=== PATIENT | male | born 1950 | race Caucasian/White ===

== ENCOUNTER 2021-05-22 18:21 | Emergency (ER) | payer BC, OTHER ==
[~2021-05-22] VITALS: Ht 172.7 cm; Wt 81.6 kg
--- NOTE | 2021-05-22 18:21 | NUR ---
BIBA TO BED 3
[2021-05-22 18:26] VITALS: BP 165/89
--- NOTE | 2021-05-22 18:43 | NUR ---
71 YO MALE BIBA FROM [facility] C/O R FLANK PAIN X 1 WEEK. 10 SHARP, NON RADIATING. +HEMATURIA, +DYSURIA, PER MEDIC PT FELL X2 LANDED ON RIGHT SIDE. PT HAS LEFT LOWER ANKLE/FOOT EDEMA +1 PITTING. 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 PT STATES HE AMBULATES WITH CANE. DENIES N/V/D. A&OX4, RR EVEN AND UNLABORED. PT PLACED ON MONITOR. SIDE RAILS UP, BED IN LOWEST POSITION FOR SAFETY. PMH: CVA 2014, LEFT SIDED DEFICIT NKDA
--- NOTE | 2021-05-22 19:17 | NUR ---
REPORT GIVEN TO LEEANNE ERNANDEZ, TRANSFER OF CARE AT THIS TIME
--- NOTE | 2021-05-22 20:12 | NUR ---
PATIENT ASSISTED TO RESTROOM VIA W/C ASSIST.
[2021-05-22 20:15] LABS: APPEARANCE,URINE CLOUDY (CLEAR); BILIRUBIN,URINE NEGATIVE (NEGATIVE); BLOOD, URINE 3+ (NEGATIVE); COLOR,URINE AMBER (YELLOW); LEUKOCYTE ESTERASE ,URINE TRACE (NEGATIVE); NITRITE, URINE POSITIVE (NEGATIVE); UGLUCOSE NEGATIVE (NEGATIVE)
[2021-05-22 20:15] LABS: BASOPHILS # (AUTO) 0.1 K/uL (0.00-0.22); BASOPHILS % (AUTO) 0.5 % (0.0-2.0); EOSINOPHILS # (AUTO) 0.1 K/uL (0-0.4); EOSINOPHILS % (AUTO) 0.9 % (0.0-4.0); HEMATOCRIT 30.5 % (36-52); HEMOGLOBIN 9.6 g/dL (12.0-18.0); LYMPHOCYTES # (AUTO) 0.9 K/uL (2.0-11.5); LYMPHOCYTES % (AUTO) 7.7 % (20.5-51.1); MEAN CORPUSCULAR HEMOGLOBIN 26 pg (27-31); MEAN CORPUSCULAR HGB CONC 32 g/dL (33-37); MEAN CORPUSCULAR VOLUME 81.2 fL (80-94); MONOCYTES # (AUTO) 1.1 K/uL (0.8-1.0); MONOCYTES % (AUTO) 8.7 % (1.7-9.3); NEUTROPHILS # (AUTO) 10.1 K/uL (1.8-7.7); PLATELET COUNT (AUTO) 403 K/uL (140-450); RED BLOOD CELL COUNT(AUTO) 3.76 MIL/uL (4.20-6.10); RED CELL DISTRIBUTION WIDTH 16.2 % (11.6-13.7); WHITE BLOOD COUNT (AUTO) 12.2 K/uL (4.8-10.8)
[2021-05-22 20:27] LABS: RBC,URINE TOO NUMEROUS TO COUN /HPF (0-5)
[2021-05-22 20:34] LABS: ALBUMIN 3.4 g/dL (3.4-5.0); ANION GAP 11.4 (8-16); CARBON DIOXIDE 27.5 mmol/L (21-32); CREATININE 1.4 mg/dL (0.6-1.3); POTASSIUM 3.9 mmol/L (3.5-5.1); TOTAL BILIRUBIN 0.4 mg/dL (0.0-1.0)
[2021-05-22 20:38] LABS: NEUTROPHILS % (AUTO) 82.2 % (42.2-75.2)
[2021-05-22 20:40] LABS: PROTHROMBIN TIME 9.9 secs (10.8-13.4)
--- NOTE | 2021-05-22 23:28 | NUR ---
NAD at this time. changed pt diapers and placed new gown on pt. on CM
--- NOTE | 2021-05-23 00:28 | NUR ---
NAD. pt remains awake. denies any needs at this time. VSS
--- NOTE | 2021-05-23 09:56 | NUR ---
CALLED [facility] SPOKE WITH LEELAENEDINA [phone] WHO STATED PATIENT IS IN LIA ON THEIR SYSTEM, TOLD HER THAT PATIENT IS STILL HERE, AND SHE STATED SHE WILL CALL US BACK.
--- NOTE | 2021-05-23 10:00 | NUR ---
Pt resting in bed with eyes closed
--- NOTE | 2021-05-23 12:00 | NUR ---
Pt resting in bed. No concerns at this time.
[2021-05-23] MEDS ORDERED: cefTRIAXone 1,000 MG in LIDOCAINE MPF 1% 2.1 ML IM ONE (12:20)
[2021-05-23] MEDS ORDERED: cefTRIAXone 1,000 MG VIAL ONE (12:33)
[2021-05-23] MEDS ORDERED: LIDOCAINE MPF 1% 5 ML ONE (12:33)
--- NOTE | 2021-05-23 13:18 | NUR ---
Freda care provided. Pt cleansed and diapered. No redness noted to area.
[2021-05-23 13:36] LABS: HEMATOCRIT 29.8 % (36-52); HEMOGLOBIN 9.6 g/dL (12.0-18.0)
[2021-05-23] MEDS ORDERED: HYDR-5080 PO (14:00)
--- NOTE | 2021-05-23 16:00 | NUR ---
Pt updated on plan of care
--- NOTE | 2021-05-23 16:45 | NUR ---
IV removed, catheter intact
--- NOTE | 2021-05-23 16:51 | NUR ---
Patient discharged with v/s stable. Written and verbal after care instructions given and explained. Follow-up care reviewed. Patient alert, oriented and verbalized understanding of instructions. Ambulatory with steady gait. All questions addressed prior to discharge. ID band removed. Patient advised to follow up with PMD. Rx of Gallant was given. Patient educated on indication of medication including possible reaction and side effects. Opportunity to ask questions provided and answered.
[2021-05-23 16:52] VITALS: BP 161/86
== END 2021-05-23 16:53 | disposition home or self-care (01) ==
LOC: MED 18:21
DX: N28.9 Disorder of kidney and ureter, unspecified (principal); Z20.822 Contact with and (suspected) exposure to COVID-19; R31.9 Hematuria, unspecified; Z86.73 Personal history of transient ischemic attack (TIA), and cerebral infarction without residual deficits
CPT/HCPCS: 36415; 71250; 74176; 80053; 81001; 85018; 85025; 85610; 85730; 87086; 87426; 96372; 99285; J0696; J2001

== ENCOUNTER 2021-06-15 18:12 | Emergency (ER) | payer BC, OTHER ==
[~2021-06-15] VITALS: Ht 172.7 cm; Wt 77.1 kg
[~2021-06-15 18:12] MED LIST: HYDR-5080 PO
[2021-06-15 18:16] VITALS: BP 146/88
--- NOTE | 2021-06-15 18:16 | NUR ---
PT BROUGHT TO BED 5 VIA BRITTANI JOSEPH
--- NOTE | 2021-06-15 18:35 | NUR ---
71 YO MALE BIBA FROM [facility] C/O DYSURIA, HEMATURIA FOR THE PAST COUPLE OF MONTHS WORSENING TODAY. PT BEING SEEN BY UROLOGY DR. OSBORN URINE SAMPLE COLLECTED. HX "PROSTATE ISSUES", CVA 7 YEARS AGO
[2021-06-15] MEDS ORDERED: TAMS0.4C96 PO (19:18)
[2021-06-15] MEDS ORDERED: PYR100 PO (19:18)
[2021-06-15 19:25] LABS: APPEARANCE,URINE CLEAR (CLEAR); BILIRUBIN,URINE 1+ (NEGATIVE); BLOOD, URINE 3+ (NEGATIVE); COLOR,URINE YELLOW (YELLOW); LEUKOCYTE ESTERASE ,URINE NEGATIVE (NEGATIVE); NITRITE, URINE NEGATIVE (NEGATIVE); PH,URINE 5.5 (5.0-9.0); UGLUCOSE NEGATIVE (NEGATIVE)
--- NOTE | 2021-06-15 19:25 | NUR ---
received report from Ruthie ERNANDEZ for continuity of care
--- NOTE | 2021-06-15 19:25 | NUR ---
REPORT AND TRANSFER OF CARE GIVEN TO AWAIS WISE.
[2021-06-15 19:41] LABS: RBC,URINE TOO NUMEROUS TO COUN /HPF (0-5); WBC,URINE 0-5 /HPF (0-5)
[2021-06-15 19:46] VITALS: BP 146/88
--- NOTE | 2021-06-15 19:46 | NUR ---
Patient discharged with v/s stable. Written and verbal after care instructions given and explained. Patient alert, oriented and verbalized understanding of instructions. Wheel Chair Assisted with to car. All questions addressed prior to discharge. ID band removed. Patient advised to follow up with PMD. Rx of pyridium and flomax given. Patient educated on indication of medication including possible reaction and side effects. Opportunity to ask questions provided and answered.
== END 2021-06-15 19:46 | disposition home or self-care (01) ==
LOC: MED 18:12
DX: R30.0 Dysuria (principal); N40.0 Benign prostatic hyperplasia without lower urinary tract symptoms; Z79.899 Other long term (current) drug therapy; Z86.73 Personal history of transient ischemic attack (TIA), and cerebral infarction without residual deficits
CPT/HCPCS: 81001; 99283